=== PATIENT | male | born 1995 | race Caucasian/White ===

== ENCOUNTER 2016-08-05 13:42 | Emergency (ER) | payer OTHER ==
[~2016-08-05] VITALS: Ht 172.7 cm; Wt 86.0 kg
[2016-08-05 13:44] VITALS: TEMP 36.4; Ht 172.7 cm; Wt 86.0 kg
--- NOTE | 2016-08-05 14:37 | EMERGENCY ROOM VISIT NOTE ---
ED Visit Note First contact with patient: 13:50 CHIEF COMPLAINT: Low back pain HISTORY OF PRESENT ILLNESS: This 21-year-old male patient presents to the emergency department ambulatory complaining of pain in the low back which began yesterday when he was lifting weights and felt a pulling and sharp pain in his low back. The pain was gradual in onset, is now constant and worse with movement. The patient notes the pain as sharp and a 6/10. The patient has taken cret-xja-[id number] medications with no relief of the pain. The patient denies any bowel or bladder difficulties. There has been no leg numbness or weakness, and no change in sensation. No nausea or vomiting or abdominal pain. No chest pain or shortness of breath. The patient has strength had prior back injuries. REVIEW OF SYSTEMS: No dysuria or increased urinary frequency. A 10 system review of systems was completed and pertinent positives and negatives are in the HPI. ALLERGIES: Penicillin MEDICATIONS: None PMH: Patient denies SOCIAL HISTORY: The patient is employed. He lives locally. He does not smoke PHYSICAL EXAM: VITALS: Vitals are noted on the nurse's note and reviewed by myself. No abnormalities noted. GENERAL: This is a 21-year-old male, in no acute distress, nondiaphoretic, well- developed well-nourished. SKIN: The skin was without rashes, erythema, edema, or bruising. Capillary refill less than 2 seconds. NECK: Supple without nuchal rigidity. No cervical spine tenderness. No paraspinous muscle tenderness. HEART: Regular rate and rhythm without murmurs gallops or rubs. LUNGS: Clear to auscultation bilaterally without wheezes, rales or rhonchi. ABDOMEN: Positive bowel sounds x 4. Normal tympanic percussion. Soft, nontender, without masses or organomegaly. Barrera sign negative. MUSCULOSKELETAL: No muscle atrophy, erythema, or edema noted of the back. There is no tenderness over the lumbar spinous processes. There is moderate tenderness over the paraspinous muscles on the left. There is no tenderness over the thoracic spine or paraspinous muscles. There are mild muscle spasms present. The patient is slow to move around with maximum tenderness with flexion and extension. Negative straight leg raise test. NEURO: Patient was alert and oriented to person place and time. Normal sensation to light and sharp touch. Deep tendon reflexes 2+ in the lower extremities. Dorsalis pedis pulse 2+ bilaterally. Heel and toe walking is normal. Strength is 5/5 lower extremities bilaterally. EMERGENCY DEPARTMENT COURSE: The patient was seen and examined. Previous visits were reviewed. The patient does not have a fever. He does not have any neurologic deficit on exam or by history. The patient has had intermittent low back pain. It is nonradiating and on the left side of the spine. This likely is musculoskeletal in nature. An x-ray was obtained as the patient has never had one in the past. He does have anterolisthesis. He has been an avid weightlifter. The patient will be given prescriptions for naproxen and Flexeril. He should rest. He should follow-up with his family doctor and/or orthopedics for further evaluation and management. He should return to the ER with any worsening symptoms. L-SPINE MIN 4 VIEWS ROUTINE CLINICAL HISTORY: Low back pain. COMPARISON: None FINDINGS: There are suspected bilateral L5 pars defects. There is 3 mm anterolisthesis of L5 on S1. There is minimal disc space narrowing at L5-S1. Mild multilevel endplate irregularity within the lower thoracic and lumbar spine is noted. This is chronic. There is no acute fracture or suspicious lesion. IMPRESSION: 1. 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 2. Minimal disc space narrowing at L5-S1. 3. No acute fracture. DIFFERENTIAL DIAGNOSIS: Lumbar strain, degenerative disc disease, spondylolisthesis, herniated disc, spinal stenosis, osteoporosis, fracture, cauda equina syndrome, neoplasm, infection, inflammatory arthritis, among others. Problem List Medical Problems: (1) Peritonsillar abscess Status: Resolved Current/Historical Medications Scheduled Cyclobenzaprine Hcl (Flexeril), 10 MG PO TID Naproxen (Naprosyn), 500 MG PO BID Allergies Coded Allergies: Penicillins (Unverified Adverse Reaction, Unknown, 08/05/16) Vital Signs Date Time Temp Pulse Resp B/P (MAP) Pulse Ox O2 Delivery O2 Flow Rate FiO2 08/05/16 15:19 70 18 122/78 99 08/05/16 13:44 36.4 74 16 158/91 98 Room Air Departure Information Impression Primary Impression: Low back pain Additional Impression: Anterolisthesis Dispostion Home / Self-Care Condition GOOD Prescriptions Cyclobenzaprine Hcl (FLEXERIL) 10 Mg Tab 10 MG PO TID for 7 Days, #21 TAB Prov: Gena Hoyt PA-C 08/05/16 Naproxen (Naprosyn) 500 Mg Tab 500 MG PO BID for 10 Days, #20 TAB Prov: Gena Hoyt PA-C 08/05/16 Referrals No Doctor, Assigned (PCP) Stephen Decker, DO Patient Instructions Back Pain - [facility], [facility] Additional Instructions Rest Naprosyn as prescribed as needed for pain/inflammation; do not take with ibuprofen, Advil, Aleve Flexeril as prescribed, as needed for muscle spasm. They will make you sleepy. Do not drive when taking the Flexeril Contact family doctor or orthopedics for a follow-up appointment for further evaluation and management Return with any worsening symptoms Problem Qualifiers
--- NOTE | 2016-08-05 14:44 | DIAGNOSTIC IMAGING REPORT ---
L-SPINE MIN 4 VIEWS ROUTINE CLINICAL HISTORY: Low back pain. COMPARISON: None FINDINGS: There are suspected bilateral L5 pars defects. There is 3 mm anterolisthesis of L5 on S1. There is minimal disc space narrowing at L5-S1. Mild multilevel endplate irregularity within the lower thoracic and lumbar spine is noted. This is chronic. There is no acute fracture or suspicious lesion. IMPRESSION: 1. 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 2. Minimal disc space narrowing at L5-S1. 3. No acute fracture. Electronically signed by: Lorenzo Bowling M.D. 08/05/2016 2:43 PM Dictated Date/Time: 08/05/2016 2:42 PM
[2016-08-05] MEDS ORDERED: NAPR-1169 PO (15:00)
[2016-08-05] MEDS ORDERED: CYCL10TA6 PO (15:00)
[2016-08-05 15:19] VITALS: BP 122/78; PULSE 70; O2SAT 99
== END 2016-08-05 15:23 | disposition home or self-care (01) ==
LOC: C.EDB 13:43 → C.EDD 15:23
DX: M43.17 Spondylolisthesis, lumbosacral region (principal); M54.5 Low back pain

== ENCOUNTER 2016-09-15 11:11 | Emergency (ER) | payer OTHER ==
[~2016-09-15] VITALS: Ht 172.7 cm; Wt 91.0 kg
[2016-09-15 11:13] VITALS: TEMP 36.4; Ht 172.7 cm; Wt 91.0 kg
[2016-09-15] MEDS ORDERED: OXYCODONE HCL IR 5 MG TAB (IMMEDIATE RELEASE) PO STA (11:49)
[2016-09-15] MEDS ORDERED: LIDO/EPINEPHRINE/SOD BICARB 20 ML VIAL INFIL ONE (12:00)
[2016-09-15] MEDS ORDERED: CEPH500C2 PO (13:17)
[2016-09-15] MEDS ORDERED: SULF800T23 PO (13:17)
[2016-09-15] MEDS ORDERED: OXYC1TAB3 PO (13:17)
--- NOTE | 2016-09-15 13:19 | EMERGENCY ROOM VISIT NOTE ---
ED Visit Note First contact with patient: 11:31 CHIEF COMPLAINT: "I have a cyst on my tailbone." HISTORY OF PRESENT ILLNESS: Patient is an otherwise healthy 21-year-old white male who presents emergency department for evaluation of painful swelling at the top of his gluteal cleft 2-3 days. He states that he had some soreness there prior, but it became red, warm, swollen and progressively tender over the last couple of days. He is taken ibuprofen with little relief. He describes this pain as sharp and rates it a 9/10. He denies any drainage or discharge from the area. He has never had symptoms similar to this previously. He denies any prior history of skin infections or abscesses. He has not had a fever. He notes pain with pressure. He had difficulty getting comfortable last night due to his pain. REVIEW OF SYSTEMS:Review of systems as per HPI. All other systems reviewed were negative. 6 systems reviewed. PMH: Electronic medical records are reviewed and summarized as above/below. See Problem List. His tetanus is up-to-date. SOCIAL HISTORY: Patient lives at home with roommates. Nonsmoker. PHYSICAL EXAM: Vital Signs: Reviewed Nurse's notes. CONSTITUTIONAL: Patient is a well-appearing, 21-year-old white male who is awake and alert and in mild distress due to his stated complaint. INTEGUMENTARY: The patient has an erythematous, tender, swollen and indurated area at the tip of the gluteal cleft. It is moderately tender to palpation. There is no pointing or drainage present. It feels like a typical subcutaneous abscess. EMERGENCY DEPARTMENT COURSE: The patient was medicated with oxycodone 10 mg orally. The area was cleansed with Betadine and draped sterilely. 1% buffered lidocaine with epinephrine was used for a field block. When adequate anesthesia was obtained, the abscess cavity was incised with an 11 blade. A large amount of purulent material drained. Culture was taken and is pending. Significant more pus was expressed with pressure and irrigation. Abscess cavity was probed for loculations and there were none. Cavity was irrigated copiously using normal saline solution. Plain gauze packing dipped in Betadine was placed. A bulky dressing was applied. Patient tolerated the procedure well. Patient will be placed on Keflex and Bactrim pending culture. He was given oxycodone to use for pain. He was instructed on wound care measures, and recent signs or symptoms for which she should return to the emergency department. Packing should be removed in 48 hours, this can be done by his PCP or here at the emergency department. He does not have any evidence for necrotizing fasciitis. I do not suspect sepsis. Differential diagnosis included abscess, subcutaneous cyst/sebaceous cyst, among others. The patient rated his pain a 0/10 at discharge. Medication reconciliation: I attest that I have personally reviewed the patient' s current medication list. Blood pressure screening: Patient was found to have a slightly elevated blood pressure due to circumstances. I do not believe that the patient requires hypertension monitoring. Problem List Medical Problems: (1) No significant past medical history Status: Resolved (2) Peritonsillar abscess Status: Resolved Current/Historical Medications Scheduled Cephalexin Monohydrate (Keflex), 500 MG PO QID Sulfa/Trimethoprim (Bactrim Ds 800MG/160MG), 1 TAB PO BID Scheduled PRN Oxycodone Immediate Rel Tab (Roxicodone Ir), 1-2 TAB PO Q4H PRN for Severe Pain Allergies Coded Allergies: Penicillins (Unverified Adverse Reaction, Unknown, 09/15/16) Vital Signs Date Time Temp Pulse Resp B/P (MAP) Pulse Ox O2 Delivery O2 Flow Rate FiO2 09/15/16 13:22 52 17 152/83 97 09/15/16 11:13 36.4 73 18 160/83 99 Room Air Medications Administered Medications (Trade) Dose Ordered Sig/Annette Route Start Time Stop Time Status Last Admin Dose Admin Lidocaine/ Epinephrine (Buffered Xylocaine/ Epinephrine 1% Inj) 20 ml NOW ONCE INFIL 09/15/16 12:00 09/15/16 12:01 DC 09/15/16 11:56 20 ML Oxycodone HCl (Roxicodone Immediate Rel Tab) 10 mg NOW STAT PO 09/15/16 11:49 09/15/16 11:50 DC 09/15/16 11:56 10 MG Departure Information Impression Primary Impression: Pilonidal cyst with abscess Prescriptions Oxycodone Immediate Rel Tab (ROXICODONE IR) 5 Mg Tab 1-2 TAB PO Q4H Y for Severe Pain, #15 TAB Prov: Lady Agustin PA 09/15/16 Sulfa/Trimethoprim (Bactrim Ds 800MG/160MG) Tab 1 TAB PO BID, #20 TAB Prov: Lady Agustin PA 09/15/16 Cephalexin Monohydrate (KEFLEX) 500 Mg Cap 500 MG PO QID, #40 CAP Prov: Lady Agustin PA 09/15/16 Referrals Sarath Bowen M.D. (PCP) Patient Instructions My [facility] Additional Instructions DO NOT drive, drink alcohol, operate machinery, or perform dangerous activities today. You were given medications in the ER that can affect your ability to safely function or operate a vehicle. Oxycodone (OxyIR) 5mg: Take 1-2 pills every four hours for breakthrough pain. Avoid alcohol, operating machinery or dangerous equipment, working on ladders or roofs, DRIVING, or situations where being under the influence may be dangerous. It is recommended to use an [id number]-[id number] stool softener such as Colace, 100mg twice daily while taking this medication to avoid constipation. Cephalexin(Keflex) 500mg: Take one pill four times daily for 10 days for your skin infection. All antibiotics can cause diarrhea. If this occurs and you feel worse or it does not resolve in 1-2 days follow up with your doctor or return to the Emergency Department as this could be signs of serious underlying problems. Any medication can cause an allergic reaction, stop the pills immediately and return to the ER for rash, hives, breathing difficulties, or swelling. Trimethoprim-Sulfamethoxazole(Bactrim DS): Take one pill twice daily for 10 days for your skin infection. All antibiotics can cause diarrhea. If this occurs and you feel worse or it does not resolve in 1-2 days follow up with your doctor or return to the Emergency Department as this could be signs of serious underlying problems. Any medication can cause an allergic reaction, stop the pills immediately and return to the ER for rash, hives, breathing difficulties, or swelling. Ibuprofen(Motrin, Advil) may be used for fever or pain. Use 600mg every six hours as needed. Take with food. Avoid using more than 2400mg in a 24 hour period. Do not use 2400mg per day for more than three consecutive days without physician direction. Prolonged inappropriate use can lead to stomach upset or ulcers. (AND/OR) Acetaminophen(Tylenol) may be used for fever or pain. Use 1000mg every six hours as needed. Avoid using more than 3000mg in a 24 hour period. Warm compresses to the affected area 4 times daily for 15-20 minutes. Dressing changes daily, more often if it becomes saturated or soiled. Be careful to not inadvertently remove the packing material when changing your bandage or when showering. Rest and drink plenty of fluids. Continue current medications. Return to the ER in 48 hours for packing removal, immediately for severe pain, persistent fevers, spreading redness, or any worsening of your condition. Follow up with your primary physician within 2-3 days for a recheck of the current condition.
[2016-09-15 13:22] VITALS: BP 152/83; PULSE 52; O2SAT 97
--- NOTE | 2016-09-22 18:38 | Pharmacy Progress Note ---
ED Pharmacist Culture FollowUp Date of Service: Sep 22, 2016. Buttock abscess cx grew grp-c beta strep and prevotella corporis. He was discharged on Keflex + Bactrim following I&D. There are no sensitivities to follow on these organisms. Attempted to contact patient to determine if cellulitis/abscess is healing well. No answer ([phone]), I did leave a message however.
== END 2016-09-15 13:32 | disposition home or self-care (01) ==
LOC: C.EDB 11:13 → C.EDD 13:32
DX: L05.01 Pilonidal cyst with abscess (principal)

== ENCOUNTER 2017-06-10 19:43 | Emergency (ER) | payer OTHER ==
[~2017-06-10] VITALS: Ht 172.7 cm; Wt 73.6 kg
[2017-06-10 19:47] VITALS: TEMP 36.4; Ht 172.7 cm; Wt 73.6 kg
[2017-06-10] MEDS ORDERED: ONDANSETRON INJ 2 MG/ML 2 ML VIAL IV STA ×2 (20:33→21:55)
[2017-06-10] MEDS ORDERED: SODIUM CHLORIDE 0.9% 1000ML 1,000 ML IV STA (20:33)
[2017-06-10] MEDS ORDERED: GI COCKTAIL PO STA (20:33)
[2017-06-10] MEDS ORDERED: ALUMINUM/MAGNESIUM SUSP 30 ML UDC ONE (20:39)
[2017-06-10] MEDS ORDERED: LIDOCAINE HCL 2% VISC SOLN 20 ML UDC ONE (20:40)
[2017-06-10 20:48] LABS: BASO % 0.3 %; BASO ABS # 0.02 K/uL (0-0.2); EOS % 0.5 %; EOS ABS # 0.04 K/uL (0-0.5); HEMOGLOBIN 16.5 g/dL (14.0-18.0); IG# 0.02 K/uL (0.00-0.02); LYMPH % 27.5 %; LYMPH ABS # 2.03 K/uL (1.2-3.4); MEAN CELL VOLUME 87.1 fL (80-100); MEAN CORPUSCULAR HEMOGLOBIN 31.3 pg (25-34); MEAN CORPUSCULAR HGB CONC 35.9 g/dl (32-36); MONO % 8.8 %; MONO ABS # 0.65 K/uL (0.11-0.59); NEUT % 62.6 %; NEUT ABS # 4.62 K/uL (1.4-6.5); PLATELET COUNT 258 K/uL (130-400); RED CELL DISTRIBUTION WIDTH CV 12.8 % (11.5-14.5); RED CELL DISTRIBUTION WIDTH SD 41.1 fL (36.4-46.3); WHITE BLOOD COUNT 7.38 K/uL (4.8-10.8)
[2017-06-10 21:23] LABS: ALBUMIN 4.1 gm/dl (3.4-5.0); ALT/SGPT 28 U/L (12-78); BLOOD UREA NITROGEN 11 mg/dl (7-18); CALCIUM 9.1 mg/dl (8.5-10.1); CARBON DIOXIDE 26 mmol/L (21-32); CREATININE 1.05 mg/dl (0.60-1.40); GLUCOSE 90 mg/dl (70-99); LIPASE 165 U/L (73-393)
[2017-06-10 21:29] LABS: POTASSIUM 4.1 mmol/L (3.5-5.1); SODIUM 139 mmol/L (136-145)
[2017-06-10 21:34] LABS: AST/SGOT 16 U/L (15-37)
[2017-06-10 21:35] LABS: ALKALINE PHOSPHATASE 57 U/L (45-117); TOTAL PROTEIN 7.9 gm/dl (6.4-8.2)
--- NOTE | 2017-06-10 21:43 | DIAGNOSTIC IMAGING REPORT ---
ULTRASOUND RIGHT UPPER QUADRANT ABDOMEN CLINICAL HISTORY: Epigastric abdominal pain. COMPARISON STUDY: No priors. TECHNIQUE: Real-time, grayscale, and color flow sonography of the right upper quadrant of the abdomen was performed. Images are reviewed in the transverse and longitudinal planes. FINDINGS: Liver: The liver is top normal in size and demonstrates heterogeneously increased echotexture consistent with steatosis. Foci of fatty sparing are observed adjacent to the gallbladder fossa. There is no intrahepatic biliary ductal dilatation. The main portal vein is patent. Gallbladder: The gallbladder is contracted and grossly normal in appearance. No gallstones are identified. There is no gallbladder wall thickening or pericholecystic fluid. A sonographic Barrera's sign is reportedly absent. The common bile duct measures up to 0.4 cm in diameter. Pancreas: Not well visualized due to overlying bowel gas. Right kidney: Survey images of the right kidney demonstrate normal size and echotexture. There is no hydronephrosis. Ascites: None. IMPRESSION: 1. No acute sonographic abnormality is identified in the right upper quadrant. No gallstones are seen. 2. Hepatic steatosis. Electronically signed by: Yury Negron M.D. 06/10/2017 9:41 PM Dictated Date/Time: 06/10/2017 9:40 PM
[2017-06-10] MEDS ORDERED: CALC500C3 PO (22:45)
[2017-06-10] MEDS ORDERED: BISM262S7 PO (22:45)
[2017-06-10] MEDS ORDERED: RANI150T3 PO (22:45)
[2017-06-10] MEDS ORDERED: ONDANSETRON HOME PACK 4MG OD TAB PO STA (22:54)
[2017-06-10] MEDS ORDERED: PANT40TA PO (22:54)
--- NOTE | 2017-06-10 22:56 | EMERGENCY ROOM VISIT NOTE ---
History First contact with patient: 19:53 Chief Complaint: ABDOMINAL PAIN Stated Complaint: STOMACH PAIN, NAUSEA Nursing Triage Summary: Pt c/o mid abdominal pain for last several days with associated nausea. Pt states pain is usually relieved when lying flat. Denies history of ulcers. Pt c/o increased stress due to finals. History of Present Illness The patient is a 22 year old male who presents to the Emergency Room with complaints of epigastric abdominal pain. The patient states he has been experiencing epigastric abdominal pain intermittently for the past 2-3 days. He describes it as very sharp. He has not discovered any obvious trigger, however notes deep inspiration makes the pain worse. He has been experiencing nausea with dry heaves, but denies any vomiting. He has had a loss of appetite and has been feeling more bloated than usual. He was able to tolerate some food today 1 PM and did not notice any significantly worsening symptoms and did not vomit. He has had some intermittent diarrhea prior to the abdominal pain which he describes as greenish in color. His last normal bowel movement was this morning. He denies any recent illness, fevers, chills, night sweats, chest pain, dyspnea. He did take Zantac today and it did help with the pain temporarily. This is the first time this has ever happened. The patient does not have any history of reflux or gallbladder disease. He is a current [employer] student and it is his final week. He states during his exam this morning , his pain was almost unbearable. Review of Systems A complete 10 point review of systems was reviewed with the patient with pertinent positives and negatives as per history of present illness. All else were negative. Past Medical/Surgical History Medical Problems: (1) No Known Active Medical Problems (2) No significant past medical history (3) Peritonsillar abscess Social History Smoking Status: Never Smoker Occupation Status: [employer] student Current/Historical Medications Scheduled Bismuth Subsalicylate (Pepto-Bismol), 1 DOSE PO PRN UD Calcium Carbonate (Tums), 2 TABS PO PRN Pantoprazole (Protonix), 40 MG PO DAILY Scheduled PRN Ranitidine Hcl (Zantac), 1 TAB PO DAILY PRN for ABD PAIN Physical Exam Vital Signs Date Time Temp Pulse Resp B/P (MAP) Pulse Ox O2 Delivery O2 Flow Rate FiO2 06/10/17 23:06 52 18 117/64 97 5/2/18 22:50 52 18 117/64 97 Room Air 06/10/17 21:45 56 20 124/64 98 Room Air 06/10/17 19:47 36.4 87 18 158/95 100 Room Air Physical Exam VITALS: Vitals are noted on the nurse's note and reviewed by myself. Vital signs stable. GENERAL: This is a 22-year-old white male, in no acute distress, nondiaphoretic , well-developed well-nourished. SKIN: The skin was without rashes, erythema, edema, or bruising. There is no tenting of the skin. Capillary reflex less than 2 seconds. HEAD: Normocephalic atraumatic. EARS: External auditory canals clear, tympanic membranes pearly soriano without erythema or effusion bilaterally. EYES: Pupils equal round and reactive to light and accommodation. Conjunctivae without injection, sclerae without icterus. Extraocular movements intact. NOSE: Patent, turbinates without inflammation or discharge. No sinus tenderness. MOUTH: Mucous membranes moist. Tonsils are not enlarged. Pharynx without erythema or exudate. Uvula midline. Airway patent. Tongue does not deviate. NECK: Supple without nuchal rigidity. No lymphadenopathy. No thyromegaly. Cervical spine is nontender. No JVD. HEART: Regular rate and rhythm without murmurs gallops or rubs. LUNGS: Clear to auscultation bilaterally without wheezes, rales or rhonchi. No dullness to percussion. No retractions or accessory muscle use. ABDOMEN: Positive bowel sounds x 4. Normal tympanic percussion. Epigastric tenderness on palpation. The abdomen was otherwise soft, nontender, without masses or organomegaly. Barrera sign negative. No guarding or rebound tenderness. MUSCULOSKELETAL: No muscle atrophy, erythema, or edema noted. Full range of motion without joint tenderness in all extremities. No tenderness to palpation. Normal gait. Strength 5/5 throughout. NEURO: Patient was alert and oriented to person place and time. Normal sensation to light and sharp touch. Deep tendon reflexes 2+ throughout. No focal neurological deficits. Medical Decision & Procedures ER Provider Diagnostic Interpretation: ULTRASOUND RIGHT UPPER QUADRANT ABDOMEN CLINICAL HISTORY: Epigastric abdominal pain. COMPARISON STUDY: No priors. TECHNIQUE: Real-time, grayscale, and color flow sonography of the right upper quadrant of the abdomen was performed. Images are reviewed in the transverse and longitudinal planes. FINDINGS: Liver: The liver is top normal in size and demonstrates heterogeneously increased echotexture consistent with steatosis. Foci of fatty sparing are observed adjacent to the gallbladder fossa. There is no intrahepatic biliary ductal dilatation. The main portal vein is patent. Gallbladder: The gallbladder is contracted and grossly normal in appearance. No gallstones are identified. There is no gallbladder wall thickening or pericholecystic fluid. A sonographic Barrera's sign is reportedly absent. The common bile duct measures up to 0.4 cm in diameter. Pancreas: Not well visualized due to overlying bowel gas. Right kidney: Survey images of the right kidney demonstrate normal size and echotexture. There is no hydronephrosis. Ascites: None. IMPRESSION: 1. No acute sonographic abnormality is identified in the right upper quadrant. No gallstones are seen. 2. Hepatic steatosis. Electronically signed by: Yury Negron M.D. 06/10/2017 9:41 PM Dictated Date/Time: 06/10/2017 9:40 PM Laboratory Results 06/10/17 20:25 Red Blood Count 5.28, Mean Corpuscular Volume 87.1, Mean Corpuscular Hemoglobin 31.3, Mean Corpuscular Hemoglobin Concent 35.9, Mean Platelet Volume 10.0, Neutrophils (%) (Auto) 62.6, Lymphocytes (%) (Auto) 27.5, Monocytes (%) (Auto) 8.8, Eosinophils (%) (Auto) 0.5, Basophils (%) (Auto) 0.3, Neutrophils # (Auto) 4.62, Lymphocytes # (Auto) 2.03, Monocytes # (Auto) 0.65, Eosinophils # (Auto) 0.04, Basophils # (Auto) 0.02 06/10/17 20:25 Test 06/10/17 20:25 White Blood Count 7.38 K/uL (4.8-10.8) Red Blood Count 5.28 M/uL (4.7-6.1) Hemoglobin 16.5 g/dL (14.0-18.0) Hematocrit 46.0 % (42-52) Mean Corpuscular Volume 87.1 fL (80-100) Mean Corpuscular Hemoglobin 31.3 pg (25-34) Mean Corpuscular Hemoglobin Concent 35.9 g/dl (32-36) Platelet Count 258 K/uL (130-400) Mean Platelet Volume 10.0 fL (7.4-10.4) Neutrophils (%) (Auto) 62.6 % Lymphocytes (%) (Auto) 27.5 % Monocytes (%) (Auto) 8.8 % Eosinophils (%) (Auto) 0.5 % Basophils (%) (Auto) 0.3 % Neutrophils # (Auto) 4.62 K/uL (1.4-6.5) Lymphocytes # (Auto) 2.03 K/uL (1.2-3.4) Monocytes # (Auto) 0.65 K/uL (0.11-0.59) Eosinophils # (Auto) 0.04 K/uL (0-0.5) Basophils # (Auto) 0.02 K/uL (0-0.2) RDW Standard Deviation 41.1 fL (36.4-46.3) RDW Coefficient of Variation 12.8 % (11.5-14.5) Immature Granulocyte % (Auto) 0.3 % Immature Granulocyte # (Auto) 0.02 K/uL (0.00-0.02) Anion Gap 8.0 mmol/L (3-11) Est Creatinine Clear Calc Drug Dose 106.7 ml/min Estimated GFR () 116.2 Estimated GFR (Non- 100.3 BUN/Creatinine Ratio 10.9 (10-20) Calcium Level 9.1 mg/dl (8.5-10.1) Total Bilirubin 0.7 mg/dl (0.2-1) Aspartate Amino Transf (AST/SGOT) 16 U/L (15-37) Alanine Aminotransferase (ALT/SGPT) 28 U/L (12-78) Alkaline Phosphatase 57 U/L (45-117) Troponin I < 0.015 ng/ml (0-0.045) Total Protein 7.9 gm/dl (6.4-8.2) Albumin 4.1 gm/dl (3.4-5.0) Globulin 3.8 gm/dl (2.5-4.0) Albumin/Globulin Ratio 1.1 (0.9-2) Lipase 165 U/L (73-393) Medications Administered Medications (Trade) Dose Ordered Sig/Annette Route Start Time Stop Time Status Last Admin Dose Admin Ondansetron HCl (Zofran Inj) 4 mg NOW STAT IV 06/10/17 20:33 06/10/17 20:34 DC 06/10/17 20:42 4 MG Sodium Chloride 1,000 ml @ 999 mls/hr Q1H1M STAT IV 06/10/17 20:33 06/10/17 21:33 DC 06/10/17 20:33 999 MLS/HR Al Hydroxide/Mg Hydroxide (Maalox Susp) 30 ml STK-MED ONCE .ROUTE 06/10/17 20:39 06/10/17 20:40 DC 06/10/17 20:43 30 ML Lidocaine HCl (Viscous Lidocaine 2% Soln) 20 ml STK-MED ONCE .ROUTE 06/10/17 20:40 06/10/17 20:41 DC 06/10/17 20:42 10 ML Ondansetron HCl (Zofran Inj) 4 mg NOW STAT IV 06/10/17 21:55 06/10/17 21:56 DC 06/10/17 21:57 4 MG Ondansetron HCl (ZOFRAN ODT 4MG Home Pack) 1 homepack UD STAT PO 06/10/17 22:54 06/10/17 22:55 DC 06/10/17 23:06 1 HOMEPACK ECG Per My Interpretation Indication: abdominal pain Rate (beats per minute): 78 Rhythm: normal sinus Findings: no acute ischemic change, no ectopy Comparison ECG Date: no prior available ED Course The patient was seen and evaluated as above. IV access obtained, labs drawn. EKG performed. This was interpreted by myself as above. The patient was given a GI cocktail, 4 mg Zofran, 1 L normal saline solution. He did note improvement in his symptoms. Ultrasound performed. This was reviewed by myself and radiologist as above. The patient complains of increased nausea. He was given a repeat dose of 4 mg Zofran IV. The patient was reassessed. He admits to moving his bowels and his nausea has improved. Discharge instructions reviewed, the patient was discharged home in good condition. Medical Decision This is a 22 year old male patient presents to the emergency department during his finals week in college complaining of epigastric discomfort and nausea. The patient has not experienced symptoms such as this before, but his symptoms do worsen while taking exams. He has not recently been ill, denies any fever. He has had a decreased appetite with sharp epigastric pain. His workup here in the emergency department was overall negative. CBC was without leukocytosis, anemia, thrombocytopenia. CMP did not reveal any renal, hepatic, or electrolyte abnormalities. Lipase was normal. The patient's urinalysis did not show any signs of infection. Ultrasound did not show any gallbladder disease. I suspect gastritis as the cause of his symptoms, as they have improved with Zantac and a GI cocktail. I suspect the gastritis may be worsened by his stress associated with his final exams. I did discuss this with the patient, and he feels that this may be the case. He was encouraged to begin taking a rotund pump inhibitor daily and follow-up closely with a PCP. The patient was agreeable to this plan. He will be provided with a short course of Zofran to use as needed for nausea. He did request a note for school in case his symptoms are significantly worse for his exams later this week. He was provided with this note. All questions were answered to patient's satisfaction. He was certainly invited back to the emergency department for any worsening symptoms. Etiologies such as gastritis, appendicitis, diverticulitis, obstruction, inflammatory bowel disease, renal colic, PUD, biliary pathology, pancreatitis, mesenteric ischemia, aortic pathology, infections, genitourinary, UTI, perforated viscus, anxiety, as well as others were entertained. The chart was completed utilizing [employer] Speech voice recognition software. Grammatical errors, random word insertions, pronoun errors, and incomplete sentences are an occasional consequence of this system due to software limitations, ambient noise, and hardware issues. Any formal questions or concerns about the content, text, or information contained within the body of this dictation should be directly addressed to the provider for clarification. Impression Primary Impression: Gastritis Departure Information Dispostion Home / Self-Care Condition GOOD Prescriptions Ondasetron Odt (ZOFRAN ODT) 4 Mg Tab 4 MG SL Q6H for Nausea, #6 TAB Prov: Angela Cole PA-C 06/11/17 Pantoprazole (Protonix) 40 Mg Tab 40 MG PO DAILY for 30 Days, #30 TAB Prov: Angela Cole PA-C 06/10/17 Referrals No Doctor, Assigned (PCP) Patient Instructions ED Gastritis, My [facility] Additional Instructions You have been treated in the Emergency Department your Abdominal Pain. Laboratory results and imaging studies have ruled out any emergent causes for your abdominal pain which would warrant admission or surgery. I suspect gastritis as the cause of your symptoms. You have been prescribed Protonix to be taken 40 mg 1 tablet daily for the next 2-4 weeks. If you are unable to tack picker this prescription, you may take omeprazole (Prilosec) 40 mg daily for the same amount of time. I do recommend follow-up with your PCP within 2 weeks for further evaluation and management of your symptoms. You have been prescribed Zofran to be used for any nausea or vomiting. Take as prescribed. For pain control, you can use the following [id number] medicines (if >12 yo): Acetaminophen(Tylenol) may be used for fever or pain. Use 1000mg every six hours as needed. Avoid using more than 3000mg in a 24 hour period. Avoid NSAIDs, as they can worsen gastritis and ulcers. Eat a bland diet and avoid overly spicy or acidic foods. Drink plenty of water and stay well hydrated. As with any trip to the Emergency Department, you should follow-up with your Primary Care Provider from today's visit. Return to the emergency department if your symptoms persist despite treatment plan outlined above or if the following symptoms occur: increased fevers, chills , worsening nausea/vomiting, blood in your stool or urine. Problem Qualifiers Primary Impression: Gastritis Gastritis type: unspecified gastritis Chronicity: acute Gastritis bleeding : without bleeding Qualified Codes: K29.00 - Acute gastritis without bleeding
[2017-06-10 23:06] VITALS: BP 117/64; PULSE 52; O2SAT 97
[2017-06-11] MEDS ORDERED: ONDA4TAB10 SL (01:19)
== END 2017-06-10 23:07 | disposition home or self-care (01) ==
LOC: C.EDB 19:44 → C.EDC 23:07
DX: K29.70 Gastritis, unspecified, without bleeding (principal); R10.13 Epigastric pain; K76.0 Fatty (change of) liver, not elsewhere classified